=== PATIENT | male | born 1990 | race Caucasian/White ===

== ENCOUNTER 2018-05-23 14:32 | Emergency (ER) | payer BC, OTHER ==
--- NOTE | 2018-05-23 16:49 | ED Physician Documentation ---
PD HPI CHEST PAIN - Stated complaint Stated Complaint: CHEST PX, ELEVATED HR, FATIGUE - Chief complaint Chief Complaint: Cardiac - History obtained from History obtained from: Patient - History of Present Illness Timing - onset: Yesterday (He started develop mild anterior chest wall pain which is nonradiating while driving golf balls yesterday, although that is not an uncommon activity for him. It has been persistent, it is worse if he moves his neck or slouches, it is not associated with shortness of breath, nausea, or sweats. Today he noticed that his Apple Watch was reading a high heart rate. He denies recent travel, went to [place] 2 months ago though. No pedal edema or calf pain.) Review of Systems Constitutional: denies: Fever, Chills Cardiac: reports: Chest pain / pressure. denies: Palpitations Respiratory: denies: Dyspnea, Cough GI: denies: Abdominal Pain, Nausea, Vomiting, Diarrhea PD PAST MEDICAL HISTORY - Past Medical History Past Medical History: Yes Cardiovascular: Hypertension - Present Medications Home Medications: Ambulatory Orders Medication Instructions Recorded Confirmed Hydrochlorothiazide 25 mg 05/23/18 Losartan [Cozaar] 50 mg 05/23/18 - Allergies Allergies/Adverse Reactions: Allergies Allergy/AdvReac Type Severity Reaction Status Date / Time lisinopril Allergy Mild Edema Verified 05/23/18 14:53 - Social History Does the pt smoke?: No Smoking Status: Never smoker PD ED PE NORMAL - Vitals Vital signs reviewed: Yes - General General: Alert and oriented X 3, No acute distress - HEENT HEENT: PERRL, EOMI - Neck Neck: Supple, no meningeal sign, No bony TTP - Cardiac Cardiac: RRR, No murmur - Respiratory Respiratory: No respiratory distress, Clear bilaterally - Abdomen Abdomen: Non tender - Extremities Extremities: No edema, No calf tenderness / cord - Neuro Neuro: Alert and oriented X 3, Normal speech Results - Vitals Vitals: Vital Signs - 24 hr 05/23/18 14:47 Temperature 36.5 C Heart Rate 105 H Respiratory 16 Rate Blood Pressure 155/91 H O2 Saturation 97 Oxygen O2 Source Room air - EKG (time done) 1441 Rate: Rate (enter#) (109) Rhythm: Sinus tachycardia (With significant variation) [place]: Normal Intervals: Normal CT Ischemia: Normal ST segments Computer interpretation: Agree with computer - Labs Labs: Laboratory Tests 05/23/18 05/23/18 05/23/18 16:53 16:53 16:53 WBC 8.5 RBC 4.98 Hgb 15.4 Hct 44.8 MCV 89.9 MCH 30.9 MCHC 34.4 RDW 13.7 Plt Count 294 MPV 8.9 Neut # (Auto) 6.0 Lymph # (Auto) 2.0 [place] # (Auto) 0.5 Eos # (Auto) 0.0 Baso # (Auto) 0.1 Absolute Nucleated RBC 0.01 Nucleated RBC % 0.1 D-Dimer < 200.0 L Sodium 137 Potassium 4.0 Chloride 100 L Carbon Dioxide 28 Anion Gap 9.0 BUN 14 Creatinine 0.8 Estimated GFR (MDRD) 114 Glucose 104 H Calcium 9.6 Total Bilirubin 0.5 AST 23 ALT 17 Alkaline Phosphatase 56 Troponin I Total Protein 7.8 Albumin 4.7 Globulin 3.1 Albumin/Globulin Ratio 1.5 Lipase 33 05/23/18 16:53 WBC RBC Hgb Hct MCV MCH MCHC RDW Plt Count MPV Neut # (Auto) Lymph # (Auto) [place] # (Auto) Eos # (Auto) Baso # (Auto) Absolute Nucleated RBC Nucleated RBC % D-Dimer Sodium Potassium Chloride Carbon Dioxide Anion Gap BUN Creatinine Estimated GFR (MDRD) Glucose Calcium Total Bilirubin AST ALT Alkaline Phosphatase Troponin I < 0.04 Total Protein Albumin Globulin Albumin/Globulin Ratio Lipase - Rads (name of study) 2v chest Radiology: EMP read contemporaneously (normal) PD MEDICAL DECISION MAKING - ED course ED course: 27-year-old gentleman with chest pain that really sounds like it is musculoskeletal, that said associate with the tachycardia PE was considered but he really does not have any risk factors for, his d-dimer was checked and negative as was the rest of his workup. Note made that on the monitor he did seem to have gotten excessive sinus arrhythmia. With Valsalva he did slow but remained sinus, without ectopy. - Sepsis Event Vital Signs: Vital Signs - 24 hr 05/23/18 14:47 Temperature 36.5 C Heart Rate 105 H Respiratory 16 Rate Blood Pressure 155/91 H O2 Saturation 97 Oxygen O2 Source Room air Departure - Departure Disposition: 01 Home, Self Care Clinical Impression: Chest wall pain Condition: Good Record reviewed to determine appropriate education?: Yes Instructions: ED Strain Chest Wall Comments: Call your doctor to arrange a follow-up appointment, make the next available appointment. In the interim, return anytime if worse or if new symptoms develop. Your blood pressure was elevated today on check into the emergency department. This does not mean that you have hypertension, it is a common phenomenon to come to the emergency department and have elevated blood pressure. I recommend that you see your primary care physician within the week to have it rechecked when you are feeling better.
[2018-05-23 17:00] LABS: BASOPHILS # (AUTO) 0.1 10^3/uL (0.0-0.1); BASOPHILS % (AUTO) 0.6 %; EOSINOPHILS % (AUTO) 0.5 %; HGB - HEMOGLOBIN 15.4 g/dL (14.0-18.0); LYMPHOCYTES % (AUTO) 23.2 %; MEAN CORPUSCULAR HEMOGLOBIN 30.9 pg (27.0-31.0); MEAN CORPUSCULAR HGB CONC 34.4 g/dL (32.0-36.0); MEAN CORPUSCULAR VOLUME 89.9 fL (80.0-94.0); MEAN PLATELET VOLUME 8.9 fL (7.4-11.4); MONOCYTES # (AUTO) 0.5 10^3/uL (0.0-1.0); MONOCYTES % (AUTO) 5.7 %; PLT - PLATELET COUNT 294 10^3/uL (130-450); RED BLOOD COUNT 4.98 10^6/uL (4.70-6.10); RED CELL DISTRIBUTION WIDTH 13.7 % (12.0-15.0); WHITE BLOOD COUNT 8.5 x10^3/uL (4.8-10.8)
[2018-05-23 17:11] LABS: ALBUMIN 4.7 g/dL (3.2-5.5); ALBUMIN/GLOBULIN RATIO 1.5 (1.0-2.2); BILIRUBIN,TOTAL 0.5 mg/dL (0.2-1.0); CALCIUM 9.6 mg/dL (8.5-10.3); CREATININE 0.8 mg/dL (0.6-1.2); TOTAL PROTEIN 7.8 g/dL (6.7-8.2)
--- NOTE | 2018-05-23 17:23 | XRAY Report ---
Procedure Date: 05/23/2018 Accession Number: [id number] / [id number] Procedure: XR - Chest 2 View X-Ray CPT Code: 02216 FULL RESULT: EXAM: CHEST RADIOGRAPHY EXAM DATE: 05/23/2018 04:59 PM. CLINICAL HISTORY: Chest pain. COMPARISON: None. TECHNIQUE: 2 views. FINDINGS: Lungs/Pleura: No focal opacities evident. No pleural effusion. No pneumothorax. Normal volumes. Mediastinum: Heart and mediastinal contours are unremarkable. Other: None. IMPRESSION: Normal 2-view chest radiography. [facility]
[2018-05-23 17:48] VITALS: BP 136/95
== END 2018-05-23 17:59 | disposition home or self-care (01) ==
LOC: ED 14:32
DX: R07.89 Other chest pain (principal); R00.0 Tachycardia, unspecified; Y93.53 Activity, golf; I10 Essential (primary) hypertension
CPT/HCPCS: 36415; 71046; 80053; 83690; 84484; 85025; 85379; 93005; 99283